=== PATIENT | male | born 1940 | race Hispanic/Latino ===

== ENCOUNTER 2018-05-29 15:54 | Inpatient (IN) | payer MEDICARE ==
[2018-05-29 15:54] VITALS: BMI 31.6
[2018-05-29] MEDS ORDERED: Sodium Chloride 0.9% 1,000 ML IV ONE (16:17)
--- NOTE | 2018-05-29 16:22 | ED PDOC ---
Arrival/HPI - General Historian: Patient - History of Present Illness Narrative History of Present Illness (Text): 05/29/18 16:17 77yo male with pmhx of hypertension who present with complaint of right sided back pain that radiates to his abdomen x 2weeks. States pain became more constant and painful over the last two days. Reports nausea and hematuria. Denies diarrhea, constipation, dysuria, frequency, chest pain, ripping/tearing upper back pain, dizziness, melena, hematochezia, any other complaint. <Eliana Valente A - Last Filed: 05/29/18 19:28> <Zain Roper - Last Filed: 05/30/18 11:15> - General Chief Complaint: Male Genitourinary Time Seen by Provider: 05/29/18 16:06 Past Medical History - Provider Review Nursing Documentation Reviewed: Yes - Tetanus Immunization Tetanus Immunization: Unknown - Cardiac Hx Hypertension: Yes - Psychiatric Hx Substance Use: No - Past Surgical History Past Surgical History: No Previous - Suicidal Assessment Feels Threatened In Home Enviroment: No <Eliana Valente - Last Filed: 05/29/18 19:28> Family/Social History - Physician Review Nursing Documentation Reviewed: Yes Family/Social History: Unknown Family HX Smoking Status: Never Smoked Hx Alcohol Use: No Hx Substance Use: No <Eliana Valente A - Last Filed: 05/29/18 19:28> Allergies/Home Meds <Eliana Valente A - Last Filed: 05/29/18 19:28> <Zain Roper - Last Filed: 05/30/18 11:15> Allergies/Adverse Reactions: Allergies No Known Allergies Allergy (Verified 05/29/18 16:06) Home Medications: Home Meds Medication Instructions Recorded Confirmed RX: Losartan [Cozaar] 100 mg PO DAILY 05/29/18 05/29/18 RX: amLODIPine [Norvasc] 10 mg PO DAILY 05/29/18 05/29/18 Review of Systems - Physician Review All systems were reviewed & negative as marked: Yes - Review of Systems Constitutional: Normal Eyes: Normal ENT: Normal Respiratory: Normal Cardiovascular: Normal Gastrointestinal: Abdominal Pain, Nausea. absent: Constipation, Diarrhea, Vomiting, Hematochezia, Hematemesis Genitourinary Male: Normal Musculoskeletal: Back Pain Skin: Normal Neurological: Normal Endocrine: Normal Hemo/Lymphatic: Normal Psychiatric: Normal <Diru,Happiness A - Last Filed: 05/29/18 19:28> Physical Exam Vital Signs Reviewed: Yes Vital Signs Temp Pulse Resp BP Pulse Ox 05/29/18 16:04 98 F 102 H 18 160/84 H 99 Temperature: Afebrile Blood Pressure: Normal Pulse: Regular Respiratory Rate: Normal Appearance: Positive for: Well-Appearing, Non-Toxic, Comfortable, Other (Morbidly obese) Pain Distress: None Mental Status: Positive for: Alert and Oriented X 3 - Systems Exam Head: Present: Atraumatic, Normocephalic Pupils: Present: PERRL Extroacular Muscles: Present: EOMI Conjunctiva: Present: Normal Mouth: Present: Moist Mucous Membranes Neck: Present: Normal Range of Motion Respiratory/Chest: Present: Clear to Auscultation, Good Air Exchange. No: Respiratory Distress, Accessory Muscle Use Cardiovascular: Present: Regular Rate and Rhythm, Normal S1, S2. No: Murmurs Abdomen: Present: Distention (Secondary to body habitus), Normal Bowel Sounds, Other (soft). No: Tenderness, Peritoneal Signs, Rebound, Guarding, McBurney's Point Tender, Rovsing's Sign Present Back: Present: Normal Inspection. No: CVA Tenderness, Midline Tenderness, Paraspinal Tenderness Upper Extremity: Present: Normal Inspection. No: Cyanosis, Edema Lower Extremity: Present: Normal Inspection. No: Edema Neurological: Present: GCS=15, CN II-XII Intact, Speech Normal Skin: Present: Warm, Dry, Normal Color. No: Rashes Psychiatric: Present: Alert, Oriented x 3, Normal Insight, Normal Concentration <Diru,Happiness A - Last Filed: 05/29/18 19:28> Vital Signs Temp Pulse Resp BP Pulse Ox 05/29/18 20:10 94 H 18 128/71 95 05/29/18 18:37 98 H 18 126/67 95 05/29/18 16:04 98 F 102 H 18 160/84 H 99 <Zain Roper - Last Filed: 05/30/18 11:15> Medical Decision Making ED Course and Treatment: 05/29/18 17:16 77yo male in ED for two weeks history of right sided back pain that radiates to his right pelvic area. CT will be ordered to r/o renal colic Vs gallstone/cholecysitis 05/29/18 17:18 Labs Abd/Pelvic T 1L NS, Zofran, Pepcid Will reassess EKG EKG Atrial flutter with 3:1 AV conduction; RBBB @ 97bpm 05/29/18 18:47 IMPRESSION: Gallstones. Right renal cyst. Gallstones. Left bladder wall mass measuring 1.7 x 3.4 cm. Markedly enlarged prostate gland. Clinical correlation advised. 05/29/18 19:28 PT was afebrile. In no distress. Lactic acid was wnl. Pt have leukocytosis. Large blood noted in UA Abdominal/pelvic CT findings as noted above Result was DW both pt and the family members by the bedside Pt need admission for IV abx and further evaluation Blood culture and UA culture ordered Zosyn and Vanco ordered Case was DW Dr. Nick Forbes and pt was admitted to they service. He requested Dr. Suzanne cruz and it was placed - RAD Interpretation Radiology Orders: 05/29/18 16:16 ABD & PELVIS W/O PO OR IV CONT [CT] Stat <Diru,Happiness A - Last Filed: 05/29/18 19:28> - Lab Interpretations Lab Results: 05/29/18 16:20 05/29/18 16:20 Lab Results 05/29/18 17:00: Urine Color Light brown, Urine Appearance Cloudy, Urine pH 6.0, Ur Specific Garrison >= 1.030, Urine Protein 100 H, Urine Glucose (UA) 100 H, Urine Ketones 15 H, Urine Blood Large H, Urine Nitrate Negative, Urine Bilirubin Small H, Urine Urobilinogen 1.0 H, Ur Leukocyte Esterase Trace H, Urine RBC Tntc, Urine WBC 2 - 5, Ur Epithelial Cells 0 - 2, Amorphous Sediment Few, Urine Bacteria Large, Coarse Granular Casts Trace H, Urine Other Uyeast 05/29/18 16:20: Lactic Acid 1.9 05/29/18 16:20: Sodium 138, Potassium 4.4, Chloride 103, Carbon Dioxide 23, Anion Gap 16, BUN 17, Creatinine 0.9, Est GFR ( Amer) > 60, Est GFR (Non- Af Amer) > 60, Random Glucose 162 H, Calcium 9.1, Total Bilirubin 0.6, AST 28, ALT 24, Alkaline Phosphatase 161 H, Lactate Dehydrogenase 520, Total Creatine Kinase 75, Troponin I < 0.01, Total Protein 8.3, Albumin 4.3, Globulin 4.1, Albumin/Globulin Ratio 1.1, Amylase 77, Lipase 155 05/29/18 16:20: PT 11.8, INR 1.03, APTT 28.4 05/29/18 16:20: WBC 20.3 H, RBC 4.84, Hgb 13.7 L, Hct 41.4 L, MCV 85.5, MCH 28.3, MCHC 33.1, RDW 13.0, Plt Count 299, MPV 9.4, Gran % 88.9 H, Lymph % (Auto) 7.9 L, Harnett % (Auto) 3.1, Eos % (Auto) 0.0 L, Baso % (Auto) 0.1, Gran # 18.06 H , Lymph # (Auto) 1.6, Harnett # (Auto) 0.6, Eos # (Auto) 0.0, Baso # (Auto) 0.02 - RAD Interpretation Radiology Orders: 05/29/18 16:16 ABD & PELVIS W/O PO OR IV CONT [CT] Stat - Medication Orders Current Medication Orders: Amlodipine Besylate (Norvasc) 10 mg PO DAILY ANAY Last Admin: 05/30/18 10:12 Dose: 10 mg MAR Blood Pressure Document 05/30/18 10:12 EDGAR (Rec: 05/30/18 10:12 EDGAR [facility] [id number]) Blood Pressure Blood Pressure (100/60-150/90) 130/72 Ceftriaxone Sodium (Rocephin 1 Gram Ivpb) 1 gm in 100 mls @ 100 mls/hr IVPB DAILY ANAY; Protocol Last Admin: 05/30/18 10:11 Dose: 100 mls/hr eMAR Start Stop Document 05/30/18 10:11 EDGAR (Rec: 05/30/18 10:11 EDGAR [facility] [id number]) Intravenous Solution Start Date 05/30/18 Start Time 10:11 End Date 05/30/18 End time 10:41 Total Infusion Time 30 Tamsulosin HCl (Flomax) 0.4 mg PO DAILY ANAY Last Admin: 05/30/18 10:12 Dose: 0.4 mg Discontinued Medications Famotidine (Pepcid) 20 mg IVP STAT STA Stop: 05/29/18 16:17 Last Admin: 05/29/18 16:30 Dose: 20 mg IVP Administration Document 05/29/18 16:30 GMD (Rec: 05/29/18 16:30 GMD [facility] [id number]) Charges for Administration # of IVP Administrations 1 Sodium Chloride (Sodium Chloride 0.9%) 1,000 mls @ 250 mls/hr IV .Q4H ONE Stop: 05/29/18 20:16 Last Admin: 05/29/18 16:29 Dose: 250 mls/hr eMAR Start Stop Document 05/29/18 16:29 GMD (Rec: 05/29/18 16:30 GMD [facility] [id number]) Intravenous Solution Start Date 05/29/18 Start Time 16:29 End Date 05/29/18 End time 20:29 Total Infusion Time 240 Vancomycin HCl (Vancomycin 1gm) 1 gm in 250 mls @ 167 mls/hr IVPB STAT STA; Protocol Stop: 05/29/18 20:34 Last Admin: 05/29/18 21:46 Dose: 167 mls/hr eMAR Start Stop Document 05/29/18 21:46 OLIVD (Rec: 05/29/18 21:46 OLIVD [id number]) Intravenous Solution Start Date 05/29/18 Start Time 21:46 End Date 05/29/18 End time 23:16 Total Infusion Time 90 Piperacillin Sod/Tazobactam Sod (Zosyn 3.375 In Ns 100ml) 100 mls @ 200 mls/hr IVPB STAT STA; Protocol Stop: 05/29/18 19:33 Last Admin: 05/29/18 20:34 Dose: 200 mls/hr eMAR Start Stop Document 05/29/18 20:34 GMD (Rec: 05/29/18 20:34 GMD [facility] [id number]) Intravenous Solution Start Date 05/29/18 Start Time 20:34 End Date 05/29/18 End time 21:04 Total Infusion Time 30 Ondansetron HCl (Zofran Inj) 4 mg IVP STAT STA Stop: 05/29/18 16:17 Last Admin: 05/29/18 16:30 Dose: 4 mg IVP Administration Document 05/29/18 16:30 GMD (Rec: 05/29/18 16:30 GMD [facility] [id number]) Charges for Administration # of IVP Administrations 1 <Zain Roper - Last Filed: 05/30/18 11:15> - PA / TAX CREDIT LEASING CONSULTANT / Resident Statement / has reviewed & agrees with the documentation as recorded. <Zain Roper - Last Filed: 05/30/18 11:15> Disposition/Present on Arrival - Present on Arrival Any Indicators Present on Arrival: No History of DVT/PE: No History of Uncontrolled Diabetes: No Urinary Catheter: No History of Decub. Ulcer: No History Surgical Site Infection Following: None - Disposition Have Diagnosis and Disposition been Completed?: Yes Disposition Time: 19:00 Patient Plan: Admission <Eliana Valente - Last Filed: 05/29/18 19:28> <Zain Roper - Last Filed: 05/30/18 11:15> - Disposition Diagnosis: Cholelithiasis, Leukocytosis, Bladder mass Disposition: HOSPITALIZED Patient Problems: Current Active Problems Problem Status Onset Bladder mass Acute Cholelithiasis Acute Leukocytosis Acute Condition: FAIR
[2018-05-29 16:43] LABS: ALB/GLOB RATIO 1.1 (1.1-1.8); ALBUMIN 4.3 g/dL (3.0-4.8); AMYLASE 77 U/L (35-125); BLOOD UREA NITROGEN 17 mg/dL (7-21); CALCIUM 9.1 mg/dL (8.4-10.5); GFR NON-AFRICAN AMERICAN > 60; LIPASE 155 U/L (23-300)
[2018-05-29 16:46] LABS: BASO # 0.02 K/mm3 (0.0-2.0); BASO % 0.1 % (0.0-3.0); GRAN # 18.06 (1.4-6.5); GRAN % 88.9 % (50.0-68.0); HEMOGLOBIN 13.7 g/dL (14.0-18.0); LYMPH # 1.6 (1.2-3.4); LYMPH % 7.9 % (22.0-35.0); MEAN CELL VOLUME 85.5 fl (80.0-105.0); MEAN CORPUSCULAR HEMOGLOBIN 28.3 pg (25.0-35.0); MEAN CORPUSCULAR HGB CONC 33.1 g/dl (31.0-37.0); MEAN PLATELET VOLUME 9.4 fl (7.0-11.0); MONO # 0.6 (0.1-0.6); MONO % 3.1 % (1.0-6.0); RBC 4.84 10^6/uL (3.5-6.1); WHITE BLOOD COUNT 20.3 10^3/ul (4.5-11.0)
[2018-05-29 16:50] LABS: INR 1.03; PARTIAL THROMBOPLASTIN TIME 28.4 Seconds (25.1-36.5); PROTHROMBIN TIME 11.8 SECONDS (9.4-12.5)
[2018-05-29 16:54] LABS: TROPONIN I < 0.01 ng/mL
[2018-05-29 17:00] LABS: ALT/SGPT 24 U/L (7-56); AST/SGOT 28 U/L (17-59)
[2018-05-29 17:38] LABS: URINE BILIRUBIN SMALL (NEGATIVE); URINE BLOOD LARGE (NEGATIVE); URINE GLUCOSE (UA) 100 mg/dL (NEGATIVE); URINE LEUKOCYTE ESTERASE TRACE Leu/uL (NEGATIVE); URINE PROTEIN 100 mg/dL (<30 mg/dL)
[2018-05-29 17:41] LABS: URINE APPEARANCE CLOUDY (CLEAR); URINE COLOR LIGHT BROWN (YELLOW)
[2018-05-29 17:48] LABS: URINE BACTERIA LARGE (NEG); URINE EPITHELIAL CELLS 0 - 2 /hpf (0-5)
[2018-05-29 17:49] LABS: URINE RBC TNTC /hpf (0-2)
[2018-05-29 17:50] LABS: URINE AMORPHOUS SEDIMENT FEW; URINE COARSE GRANULAR CAST TRACE /hpf (0-2)
[2018-05-29] MEDS ORDERED: Piperacillin/Tazobact 3.375 gm 100 ML IVPB STA (19:04)
[2018-05-29] MEDS ORDERED: Vancomycin 1gm in NS 250ml 1 GM/250 ML BAG IVPB STA (19:05)
[2018-05-30 09:12] LABS: BASO # 0.03 K/mm3 (0.0-2.0); BASO % 0.2 % (0.0-3.0); EOS # 0.1 (0.0-0.7); EOS % 0.9 % (1.5-5.0); GRAN # 9.38 (1.4-6.5); GRAN % 71.7 % (50.0-68.0); HEMOGLOBIN 12.9 g/dL (14.0-18.0); LYMPH # 2.8 (1.2-3.4); LYMPH % 21.2 % (22.0-35.0); MEAN CELL VOLUME 86.3 fl (80.0-105.0); MEAN CORPUSCULAR HGB CONC 32.5 g/dl (31.0-37.0); MEAN PLATELET VOLUME 9.1 fl (7.0-11.0); MONO # 0.8 (0.1-0.6); RBC 4.6 10^6/uL (3.5-6.1); RED CELL DISTRIBUTION WIDTH 13.2 % (11.5-14.5); WHITE BLOOD COUNT 13.1 10^3/ul (4.5-11.0)
--- NOTE | 2018-05-30 09:17 | CT ---
Date of service: 05/29/2018 PROCEDURE: CT Abdomen and Pelvis without intravenous contrast HISTORY: Right back/flank pain COMPARISON: 01/02/2015. CT abdomen and pelvis TECHNIQUE: Unenhanced. Neither IV nor oral contrast administered Radiation dose: Total exam DLP = 760.13 mGy-cm. This CT exam was performed using one or more of the following dose reduction techniques: Automated exposure control, adjustment of the mA and/or kV according to patient size, and/or use of iterative reconstruction technique. FINDINGS: LOWER THORAX: Unremarkable. LIVER: Unremarkable. No gross lesion or ductal dilatation. GALLBLADDER AND BILE DUCTS: Cholelithiasis without CT evidence of acute cholecystitis. PANCREAS: Unremarkable. No gross lesion or ductal dilatation. SPLEEN: Unremarkable. ADRENALS: Unremarkable. No mass. KIDNEYS AND URETERS: Unremarkable. No hydronephrosis. No solid mass. Incidental exophytic cyst projects off the lower pole of the right kidney unchanged. VASCULATURE: Atherosclerotic calcification and mural plaque present. No aneurysm identified. BOWEL: Unremarkable. No obstruction. No gross mural thickening. APPENDIX: Unremarkable. Normal appendix. PERITONEUM: Unremarkable. No free fluid. No free air. LYMPH NODES: Unremarkable. No enlarged lymph nodes. BLADDER: Partially calcified mass left lateral wall of the urinary bladder measures 1.6 x 3.3 cm. Similar finding identified on the prior study measured 11 x 19 mm. REPRODUCTIVE: Enlarged prostate measuring 5.5 x 6.8 cm. BONES: No acute fracture. OTHER FINDINGS: None. IMPRESSION: Left lateral bladder wall mass which is increased in size compared to the prior study 01/02/2015. Follow-up recommended. Cholelithiasis without CT evidence of acute cholecystitis. Concordant results (preliminary interpretation) provided by [facility]. Procedure Completed: 17:51. Preliminary Report: Dictated and Authenticated: 18:44. Final Interpretation: 09:12. May 25, 2018
[2018-05-30 09:30] LABS: ALB/GLOB RATIO 1.1 (1.1-1.8); ALT/SGPT 25 U/L (7-56); AST/SGOT 23 U/L (17-59); BLOOD UREA NITROGEN 13 mg/dL (7-21); CALCIUM 9.1 mg/dL (8.4-10.5); GFR NON-AFRICAN AMERICAN > 60
[2018-05-30] MEDS: cefTRIAXone 1 gm 1 GM/100 ML BAG IVPB SCH (10:11)
--- NOTE | 2018-05-30 11:12 | RAD ---
Date of service: 05/29/2018 HISTORY: admission COMPARISON: No prior. FINDINGS: LUNGS: No active pulmonary disease. PLEURA: No significant pleural effusion identified, no pneumothorax apparent. CARDIOVASCULAR: No atherosclerotic calcification present No radiographic findings to suggest acute or significant cardiovascular disease. OSSEOUS STRUCTURES: No significant abnormalities. VISUALIZED UPPER ABDOMEN: Normal. OTHER FINDINGS: None. IMPRESSION: No active disease.
--- NOTE | 2018-05-30 16:41 | CARD ---
APPROVED REPORT Date of service: 05/29/2018 EKG Measurement Heart [id number] <Conclusion> Normal sinus rhythm Right bundle branch block Inferior infarct, age undetermined Abnormal ECG
--- NOTE | 2018-05-30 19:21 | HP ---
HISTORY OF PRESENT ILLNESS: The patient is a 77-year-old man with a past medical history of hypertension who presented for evaluation of a 2 month history of hematuria. The patient reports that approximately 2 months ago he experienced 2 episodes of hematuria. Since that time he has continued to have intermittent hematuria with occasional passage of clots. He also reports intermittent right-sided flank pain associated with his symptoms but denies weight loss, poor appetite, fevers, chills, rigors, dysuria or weak stream associated with his urination. Due to the increasing frequency of his hematuria, he opted for ED evaluation. Examination in the ED found him to be afebrile and hemodynamically stable. Laboratory studies disclosed a markedly elevated white blood cell count of 20,000 and large blood on the urinalysis. He was started on IV fluid hydration and subsequently admitted to the general medical melo for further evaluation of hematuria. PAST MEDICAL HISTORY: As per HPI. PAST SURGICAL HISTORY: None. ALLERGIES: NKDA. MEDICATIONS: Amlodipine 10 mg p.o. daily and Losartan 100 mg p.o. daily. FAMILY HISTORY: Noncontributory. SOCIAL HISTORY: The patient denies any toxic habits. REVIEW OF SYSTEMS: A 12-point review of systems is negative except as per HPI. PHYSICAL EXAMINATION: VITAL SIGNS: Temperature 98.3, pulse 95, blood pressure 138/77, respiratory rate 20, oxygen saturation 97% on room air. GENERAL: No apparent distress. HEENT: PERRL, EOMI. No scleral icterus. No conjunctival pallor. NECK: No JVD, no bruits. LUNGS: Clear to auscultation. CARDIOVASCULAR: Regular rate and rhythm. Normal S1 and S2. No murmurs. ABDOMEN: Normoactive bowel sounds. Soft, nontender, and nondistended. No flank tenderness. EXTREMITIES: No edema. NEUROLOGIC: Awake, alert, and oriented x 3. No focal motor deficits. LABORATORY DATA: WBC 20,000 with 89% neutrophils, hemoglobin 13.7, hematocrit 41, platelets 299. Sodium 138, potassium 4.4, chloride 103, bicarb 23, BUN 17, creatinine 0.9, glucose 162. Urinalysis demonstrates light brown, cloudy urine with large blood, negative nitrites and trace leukocyte esterase. IMAGING STUDIES: CT of the abdomen and pelvis is pending. ASSESSMENT: The patient is a 77-year-old man with a past medical history of hypertension who presented for evaluation of a 2 month history of hematuria. PLAN: 1. Hematuria of unclear etiology. CT of the abdomen and pelvis pending. Urologic evaluation with Dr. Palacios is pending. We will continue to monitor CBC daily. We will continue Ceftriaxone 1 g IV daily and start Flomax 0.4 mg p.o. daily. 2. Hypertension, blood pressure is controlled. Resume Norvasc 10 mg p.o. daily. We will hold Cozaar at present and continue to monitor hemodynamics and adjust medications as needed. 3. Prophylaxis. GI prophylaxis not indicated as the patient is eating. DVT prophylaxis not indicated as the patient is ambulatory. CODE STATUS: Full code. Reese Forbes MD MTDD
--- NOTE | 2018-05-31 06:33 | CON ---
DATE: 05/30/2018 CHIEF COMPLAINT: Gross hematuria. HISTORY OF PRESENT ILLNESS: This is a 77-year-old male with a history of hypertension, who presented to the emergency room complaining of right-sided abdominal and back pain for few weeks. The pain had become more pronounced. The patient reports having gross hematuria on and off for the past year. He denies having any dysuria, but does complain of mild urinary frequency with nocturia one time per night. The patient reports the pain is a more recent finding. He did have some nausea, but no vomiting. He denies any fever or chills. He has a smoking history, but quit many years ago. The patient's had been pleading with him to see a doctor about the gross hematuria, but he refused as it was not bothering him until recently. A consultation then was requested regarding the above. PAST MEDICAL HISTORY: Significant for hypertension. MEDICATIONS: Include Norvasc, Flomax, and Rocephin, did receive Zosyn and vancomycin. ALLERGIES: NO KNOWN DRUG ALLERGIES. FAMILY HISTORY: Noncontributory. SOCIAL HISTORY: Positive for smoking many years ago. Denies EtOH use of other drugs. REVIEW OF SYSTEMS: A 12-point review of systems was obtained. Positives as per the HPI. All other systems are negative. PHYSICAL EXAMINATION GENERAL: The patient is awake and alert, in no acute distress. He is afebrile. VITAL SIGNS: Temperature of 98, BP 130/72, pulse of 82, respirations 20. NECK: Supple. There is no adenopathy. CHEST: Exam of the chest reveals normal respiratory effort. CARDIAC: Exam shows positive S1 and S2. There was no peripheral edema noted. ABDOMEN: The abdomen is obese, soft, nontender, nondistended. There is no hepatosplenomegaly. There is no costovertebral angle tenderness. : Phallus has a phimotic foreskin. The meatus is visible. Scrotum is normal. Testes bilaterally descended, nontender, no masses. Karsten Palacios MD
[2018-05-31 06:51] LABS: BASO # 0.03 K/mm3 (0.0-2.0); BASO % 0.2 % (0.0-3.0); EOS # 0.3 (0.0-0.7); EOS % 2.1 % (1.5-5.0); GRAN # 8.79 (1.4-6.5); GRAN % 69.3 % (50.0-68.0); HEMOGLOBIN 12.3 g/dL (14.0-18.0); LYMPH # 2.5 (1.2-3.4); LYMPH % 19.4 % (22.0-35.0); MEAN CELL VOLUME 85.9 fl (80.0-105.0); MEAN CORPUSCULAR HEMOGLOBIN 28.4 pg (25.0-35.0); MEAN CORPUSCULAR HGB CONC 33.1 g/dl (31.0-37.0); MONO # 1.2 (0.1-0.6); RBC 4.33 10^6/uL (3.5-6.1); RED CELL DISTRIBUTION WIDTH 13.1 % (11.5-14.5); WHITE BLOOD COUNT 12.7 10^3/ul (4.5-11.0)
[2018-05-31 07:03] LABS: ALB/GLOB RATIO 1.1 (1.1-1.8); ALT/SGPT 27 U/L (7-56); AST/SGOT 25 U/L (17-59); BLOOD UREA NITROGEN 15 mg/dL (7-21); CALCIUM 8.7 mg/dL (8.4-10.5); GFR NON-AFRICAN AMERICAN > 60
--- NOTE | 2018-05-31 09:16 | PN ---
SUBJECTIVE: The patient was seen and examined at bedside on the remote telemetry melo. No acute events overnight. He remains afebrile and hemodynamically stable. He continues to endorse intermittent hematuria but denies passage of clots. The patient was evaluated by Dr. Palacios of Urology and is scheduled for cystoscopy tomorrow. PHYSICAL EXAMINATION: VITAL SIGNS: Temperature 98.2, pulse 70, blood pressure 138/75, respiratory rate 20, oxygen saturation 97% on room air. GENERAL: No apparent distress. HEENT: PERRL, EOMI. No scleral icterus. No conjunctival pallor. NECK: No JVD, no bruits. LUNGS: Clear to auscultation. CARDIOVASCULAR: Regular rate and rhythm. Normal S1 and S2. No murmurs. ABDOMEN: Normoactive bowel sounds. Soft, nontender, nondistended. No flank tenderness. EXTREMITIES: No edema. NEUROLOGIC: Awake, alert, and oriented x 3. No focal motor deficits. LABORATORY DATA: WBC 12.7 with 69% neutrophils, hemoglobin 12, hematocrit 37, platelets 282. Chemistry reviewed and unremarkable. Blood cultures with no growth to date. Urine culture pending. IMAGING STUDIES: CT of the abdomen and pelvis without contrast demonstrated a left lateral bladder wall mass (increased in size compared to 12/2014) and an enlarged prostate. ASSESSMENT: The patient is a 77-year-old man with a past medical history of hypertension who presented for evaluation of a 2 month history of hematuria. PLAN: 1. Hematuria, consider secondary to bladder mass as evidenced on CT. Input from Dr. Palacios greatly appreciated and the patient is tentatively scheduled for a cystoscopy tomorrow. The patient has no active cardiac issues and is a low-risk patient for a low-risk procedure and may proceed without any further cardiopulmonary workup. We will continue to monitor CBC daily and continue Ceftriaxone 1 g IV daily. 2. Bladder mass. As above, the patient is scheduled for cystoscopy tomorrow for further evaluation. 3. Hypertension. Blood pressure controlled. Continue Norvasc 10 mg p.o. daily. 4. BPH. Continue Flomax 0.4 mg p.o. daily. We will check a PSA level. 5. Prophylaxis. GI prophylaxis is not indicated as the patient is eating. DVT prophylaxis is not indicated as the patient is ambulatory. CODE STATUS: Full code. Reese Forbes MD [facility] # [id number] NASRIN
[2018-05-31] MEDS: cefTRIAXone 1 gm 1 GM/100 ML BAG IVPB SCH (11:14)
[2018-06-01 07:03] LABS: BASO # 0.04 K/mm3 (0.0-2.0); BASO % 0.4 % (0.0-3.0); EOS # 0.2 (0.0-0.7); EOS % 2.1 % (1.5-5.0); GRAN # 7.57 (1.4-6.5); GRAN % 67.9 % (50.0-68.0); HEMOGLOBIN 12.1 g/dL (14.0-18.0); LYMPH # 2.4 (1.2-3.4); LYMPH % 21.2 % (22.0-35.0); MEAN CELL VOLUME 85.6 fl (80.0-105.0); MEAN CORPUSCULAR HEMOGLOBIN 27.7 pg (25.0-35.0); MEAN CORPUSCULAR HGB CONC 32.4 g/dl (31.0-37.0); MEAN PLATELET VOLUME 9.3 fl (7.0-11.0); MONO # 0.9 (0.1-0.6); MONO % 8.4 % (1.0-6.0); RBC 4.37 10^6/uL (3.5-6.1); RED CELL DISTRIBUTION WIDTH 12.9 % (11.5-14.5); WHITE BLOOD COUNT 11.1 10^3/ul (4.5-11.0)
[2018-06-01 07:25] LABS: ALB/GLOB RATIO 1.1 (1.1-1.8); ALT/SGPT 21 U/L (7-56); AST/SGOT 24 U/L (17-59); BLOOD UREA NITROGEN 11 mg/dL (7-21); CALCIUM 8.9 mg/dL (8.4-10.5); GFR NON-AFRICAN AMERICAN > 60
[2018-06-01] MEDS ORDERED: Propofol 10 mg/ml Inj (20 ML) ONE (08:08)
[2018-06-01] MEDS ORDERED: Lidocaine PF 2% (5 ml) Inj (For Cardiac Arrhy) ONE (08:08)
--- NOTE | 2018-06-01 08:39 | PN ---
SUBJECTIVE: The patient was seen and examined at bedside on the remote telemetry melo. No acute events overnight. He remains afebrile and hemodynamically stable. This morning he is being taken to the OR for cystoscopy with Dr. Palacios given his presentation with hematuria and evidence of a bladder mass on CT imaging. OBJECTIVE: VITAL SIGNS: Temperature 97.8, pulse 97, blood pressure 148/74, respiratory rate 20, oxygen saturation 97% on room air. GENERAL: No apparent distress. HEENT: PERRL, EOMI. No scleral icterus. No conjunctival pallor. NECK: No JVD, no bruits. LUNGS: Clear to auscultation. CARDIOVASCULAR: Regular rate and rhythm. Normal S1 and S2. No murmurs. ABDOMEN: Normoactive bowel sounds. Soft, nontender and nondistended. No flank tenderness. EXTREMITIES: No edema. NEUROLOGIC: Awake, alert and oriented x 3. No focal motor deficits. LABORATORY DATA: WBC 11.1 with 67% neutrophils, hemoglobin 12, hematocrit 37, platelets 271. Chemistry reviewed and unremarkable. Blood cultures with no growth to date. Urine culture with no growth to date. ASSESSMENT: The patient is a 77-year-old man with a past medical history of hypertension who presented for evaluation of a 2 month history of hematuria. PLAN: 1. Hematuria, consider secondary to bladder mass evidenced on CT. Input from Dr. Palacios appreciated and the patient is scheduled for cystoscopy this morning. Continue with postprocedure care as per Dr. Palacios. 2. Bladder mass. As above, the patient is scheduled for cystoscopy this morning for further evaluation. 3. Hypertension. Blood pressure controlled. Continue Norvasc 10 mg p.o. daily. 4. BPH. Continue Flomax 0.4 mg p.o. daily. PSA level is satisfactory. 5. Prophylaxis. GI prophylaxis is not indicated as the patient is eating. DVT prophylaxis is not indicated as the patient is ambulatory. CODE STATUS: Full code. Reese Forbes MD MTDJosh
[2018-06-01] MEDS ORDERED: Succinylcholine 200 mg/10 ml Inj IV ONE (08:48)
[2018-06-01] MEDS ORDERED: Oxycodone/Acetaminophen 5/325 mg Tab PO PRN (09:39)
[2018-06-01] MEDS ORDERED: Morphine 4 mg/ml ISec ONE (09:53)
[2018-06-01] MEDS: Morphine 2 mg/ml ISec IVP PRN ×2 (09:55→10:10)
[2018-06-01] MEDS ORDERED: Lactated Ringer's 1,000 ML IV SCH (10:00)
[2018-06-01] MEDS: cefTRIAXone 1 gm 1 GM/100 ML BAG IVPB SCH (13:12)
--- NOTE | 2018-06-01 13:24 | OP ---
PROCEDURE DATE: 06/01/2018 PREOPERATIVE DIAGNOSIS: Bladder tumor. POSTOPERATIVE DIAGNOSIS: Bladder tumor. PROCEDURES: Cystoscopy, transurethral resection of large bladder tumor, and fulguration of bladder tumor. ATTENDING SURGEON: Karsten Palacios MD ANESTHESIA: General. SPECIMENS: Bladder tumor chips sent to Pathology. DRAINS: A 22[place] 3-way Farias catheter. COMPLICATIONS: There were none. ESTIMATED BLOOD LOSS: 50 mL. OPERATIVE FINDINGS: After informed consent was obtained, the patient was taken to the operating room and placed on the operating table. Anesthesia was administered. The patient was placed in the dorsal lithotomy position, and prepped and draped in usual sterile fashion. First, a 22[place] cystoscope was placed in the patient's urethra and advanced proximally under direct vision until the bladder was entered. A full survey inspection of bladder was then performed, which revealed a large necrotic mass covered with clot extending from the approximately 2 o'clock position up to the dome of the bladder. Both ureteral orifices were able to be identified. There was grade 1 trabeculation. There were no other satellite masses noted. Exam of the urethra revealed normal urethra with moderately occlusive prostate with trilobar hypertrophy. At this point, the cystoscope was removed. A 26[place] resectoscope with visualizing obturator was placed in the patient's urethra and advanced proximally under direct vision until the bladder was entered. Using a resecting loop, pieces of clot were able to be removed from the tumor. Using a Urovac evacuator, the clot was able to be removed, although most of it needed to be removed by grasping it with the loop and pulling it out through the scope. After the clot had been removed from the surface of the tumor, the tumor was then able to be resected. Using the loop, the tumor was then resected in its entirety down into the muscular layer. Any bleeding points encountered during the resection were controlled using electrocautery. After all the visible tumor had been resected, the evacuating device again was used to remove the tumor chips which were sent to Pathology along with the previously removed clot. At this point, a rollerball electrode was then used to completely fulgurate the base of the tumor as well as an area of surrounding normal mucosa. In total, an area of 5 x 6 cm was resected and fulgurated. A final inspection was then made. There was no remaining visible tumor. There was complete hemostasis from the tumor bed. There were no remaining chips in the bladder. At this point, the procedure was completed, the bladder was drained, the resectoscope was removed, and a 22[place] 3-way Farias catheter was then passed and placed to continuous bladder irrigation. The patient tolerated the procedure well. He was taken to the recovery room awake and in stable condition. Karsten Palacios MD
[2018-06-02 07:14] LABS: ALBUMIN 3.5 g/dL (3.0-4.8); ALT/SGPT 22 U/L (7-56); AST/SGOT 29 U/L (17-59); BLOOD UREA NITROGEN 11 mg/dL (7-21); CALCIUM 8.4 mg/dL (8.4-10.5); GFR NON-AFRICAN AMERICAN > 60
[2018-06-02 07:19] LABS: BASO # 0.04 K/mm3 (0.0-2.0); BASO % 0.3 % (0.0-3.0); EOS # 0.1 (0.0-0.7); EOS % 0.8 % (1.5-5.0); GRAN # 11.22 (1.4-6.5); GRAN % 73.2 % (50.0-68.0); HEMOGLOBIN 11.4 g/dL (14.0-18.0); LYMPH # 2.5 (1.2-3.4); LYMPH % 16.4 % (22.0-35.0); MEAN CELL VOLUME 86.4 fl (80.0-105.0); MEAN CORPUSCULAR HEMOGLOBIN 27.7 pg (25.0-35.0); MEAN CORPUSCULAR HGB CONC 32.1 g/dl (31.0-37.0); MEAN PLATELET VOLUME 9.4 fl (7.0-11.0); MONO # 1.4 (0.1-0.6); MONO % 9.3 % (1.0-6.0); RBC 4.11 10^6/uL (3.5-6.1); WHITE BLOOD COUNT 15.3 10^3/ul (4.5-11.0)
--- NOTE | 2018-06-02 08:46 | PN ---
SUBJECTIVE: The patient was seen and examined at bedside on the remote telemetry melo. No acute events overnight. He remains afebrile, hemodynamically stable and is doing well s/p cystoscopy with transurethral resection of a large bladder tumor. The patient tolerated the procedure well and no postprocedure complications were noted. He remains with a Farias catheter in place and overall states he feels great. PHYSICAL EXAMINATION: VITAL SIGNS: Temperature 98.2, pulse 88, blood pressure 100/56, respiratory rate 20, oxygen saturation 95% on room air. GENERAL: No apparent distress. HEENT: PERRL, EOMI. No scleral icterus. No conjunctival pallor. NECK: No JVD, no bruits. LUNGS: Clear to auscultation. CARDIOVASCULAR: Regular rate and rhythm. Normal S1 and S2. No murmurs. ABDOMEN: Normoactive bowel sounds. Soft, nontender, nondistended. No flank tenderness. GENITOURINARY: Farias catheter remains in place. EXTREMITIES: No edema. NEUROLOGIC: Awake, alert, and oriented x 3. No focal motor deficits. LABORATORY DATA: WBC 15.3 with 73% neutrophils, hemoglobin 11, hematocrit 35, platelets 268. Chemistry reviewed and unremarkable. Blood cultures with no growth to date. Urine culture with no growth to date. ASSESSMENT: The patient is 77-year-old man with a past medical history of hypertension who presented for a evaluation of a 2 month history of hematuria and is now s/p cystoscopy and transurethral resection of large bladder tumor. PLAN: 1. Hematuria secondary to bladder tumor s/p cystoscopy s/p transurethral resection of large bladder tumor. Input from Dr. Palacios greatly appreciated. Continue with postprocedure care as per Dr. Palacios. We will discuss with Dr. Palacios the timing of removal of Farias catheter. 2. Bladder mass s/p transurethral resection. As above, input from Dr. Palacios greatly appreciated. We will await the pathology results. 3. Hypertension. Blood pressure controlled. Continue Norvasc 10 mg p.o. daily. 4. BPH. Continue Flomax 0.4 mg p.o. daily. 5. Prophylaxis. GI prophylaxis not indicated as the patient is eating. DVT prophylaxis not indicated as the patient is ambulatory. CODE STATUS: Full code. Reese Forbes MD Suman # [id number] NASRIN
[2018-06-02] MEDS: cefTRIAXone 1 gm 1 GM/100 ML BAG IVPB SCH (09:08)
--- NOTE | 2018-06-02 14:37 | PN ---
DATE: 06/02/2018 POSTOPERATIVE PROGRESS NOTE SUBJECTIVE: The patient is seen in his room. He is status post a TURBT yesterday. The patient is awake and alert and answering questions. He is in no acute distress. He is afebrile. Vital signs are normal. His abdomen is soft. There is no rebound or guarding. There is no CVA tenderness. exam: Farias catheter in place draining clear-colored urine on slow CBI. IMPRESSION AND PLAN: Status post transurethral resection of bladder tumor. Await pathology. Discontinue continuous bladder irrigation for now. I would continue the Farias catheter and continue the patient on tamsulosin. Farias catheter can be removed tomorrow morning and the patient can be discharged home after voiding. The patient will need to follow up with me in the office to discuss his pathology and future plans as this does appear to be a malignant tumor of the bladder, but I need to review the pathology once it is confirmed. Karsten Palacios MD
[2018-06-02 17:41] VITALS: RESP 20
[2018-06-03 07:11] LABS: BASO # 0.03 K/mm3 (0.0-2.0); BASO % 0.2 % (0.0-3.0); EOS # 0.1 (0.0-0.7); EOS % 0.9 % (1.5-5.0); GRAN # 10.2 (1.4-6.5); GRAN % 72.9 % (50.0-68.0); HEMOGLOBIN 11.9 g/dL (14.0-18.0); LYMPH # 2.3 (1.2-3.4); LYMPH % 16.3 % (22.0-35.0); MEAN CELL VOLUME 85.7 fl (80.0-105.0); MEAN CORPUSCULAR HEMOGLOBIN 27.8 pg (25.0-35.0); MEAN CORPUSCULAR HGB CONC 32.4 g/dl (31.0-37.0); MEAN PLATELET VOLUME 9.7 fl (7.0-11.0); MONO # 1.4 (0.1-0.6); MONO % 9.7 % (1.0-6.0); RBC 4.28 10^6/uL (3.5-6.1); RED CELL DISTRIBUTION WIDTH 13.1 % (11.5-14.5)
[2018-06-03 07:37] LABS: ALBUMIN 3.7 g/dL (3.0-4.8); ALT/SGPT 14 U/L (7-56); AST/SGOT 24 U/L (17-59); BLOOD UREA NITROGEN 15 mg/dL (7-21); CALCIUM 8.7 mg/dL (8.4-10.5); GFR NON-AFRICAN AMERICAN > 60
[2018-06-03 08:28] VITALS: BP 129/77; PULSE 86; TEMP 97.7; O2SAT 95
--- NOTE | 2018-06-03 14:42 | DS ---
The patient in room 374, bed 1. HISTORY OF PRESENT ILLNESS: The patient has no complaints. He has urinated this morning and there have been no acute events overnight. The patient was initially admitted for a 2-month history of hematuria. PHYSICAL EXAMINATION: VITAL SIGNS: Temperature of 97.7, blood pressure 129/77, respiratory rate of 20 with an O2 saturation of 95% on room air. HEENT: PERRLA, EOMI. No icterus. NECK: Supple with a full range of motion. LUNGS: Clear at auscultation and percussion bilaterally. HEART: With a regular rate and rhythm with no murmurs. ABDOMEN: Soft. It is nontender. Bowel sounds are normoactive. There is no organomegaly. EXTREMITIES: Showed no deformities or edema. NEUROLOGICAL: There are no focal motor deficits. The patient is ambulating without any problems. LAB VALUES: WBC is 14.0, which is down from 20.3. Hemoglobin and hematocrit is steady at 11.9 and 36.7. Chemistry with the exception of a random glucose of 124 is essentially normal. The patient was on IV antibiotics. He will be discharged on previous medications as well as Flomax 0.4 mg p.o. daily. He will follow up with Dr. Palacios and with this office in 1 week's duration. DISCHARGE DIAGNOSES: 1. Bladder tumor. 2. Hypertension. Nick Forbes MD
--- NOTE | 2018-06-07 08:10 | PQF ---
PROVIDER RESPONSE TEXT: Will check path report REVIEWER QUERY TEXT: Documentation Clarification Your help is requested in clarifying the following clinical documentation, if you can please further specify in the medical record and discharge summary. The patient's Clinical Indicators include: Path report is now available in the chart, Please review and document in Medical record if you agree. Query created by: Kendal Gant on 06/07/2018 7:14 AM Electronically signed by: Reese Forbes MD, MD 06/07/2018 8:08 AM
== END 2018-06-03 11:00 | disposition home or self-care (01) | DRG 670 ==
LOC: ED 15:54 → ERH 18:58 → 3RSO 20:47
PROVIDERS: ADMIT Student in an Organized Health Care Education/Training Program; ATTEND Student in an Organized Health Care Education/Training Program
PROC: 0T5B8ZZ Destruction of Bladder, Via Natural or Artificial Opening Endoscopic (ICD-10-PCS; 2018-06-01)
PROC: 0TBB8ZZ Excision of Bladder, Via Natural or Artificial Opening Endoscopic (ICD-10-PCS; principal; 2018-06-01 08:00)
DX: C67.9 Malignant neoplasm of bladder, unspecified (principal); R31.0 Gross hematuria; I10 Essential (primary) hypertension; D72.829 Elevated white blood cell count, unspecified; N40.1 Benign prostatic hyperplasia with lower urinary tract symptoms; R35.0 Frequency of micturition; R35.1 Nocturia; N28.1 Cyst of kidney, acquired; K80.20 Calculus of gallbladder without cholecystitis without obstruction; Z87.891 Personal history of nicotine dependence

== ENCOUNTER 2018-12-16 07:03 | Outpatient (CLI) | payer MEDICARE | END 2018-12-16 07:04 | disposition home or self-care (01) | LOC: LAB 07:03 ==